=== PATIENT | male | born 1995 | race Caucasian/White ===

== ENCOUNTER 2018-03-11 11:58 | Emergency (ER) | payer SELFPAY ==
[2018-03-11 12:01] VITALS: BP 124/84
[2018-03-11] MEDS ORDERED: ROBAXIN500 M1 PO (14:12)
[2018-03-11] MEDS ORDERED: NAPROSYN500 MG PO (14:12)
== END 2018-03-11 12:13 | disposition home or self-care (01) ==
LOC: ED 11:58
DX: S46.911A Strain of unspecified muscle, fascia and tendon at shoulder and upper arm level, right arm, initial encounter (principal); Z88.2 Allergy status to sulfonamides; X50.0XXA Overexertion from strenuous movement or load, initial encounter; Y93.89 Activity, other specified; Y92.89 Other specified places as the place of occurrence of the external cause; Y99.8 Other external cause status

== ENCOUNTER 2019-01-12 02:48 | Emergency (ER) | payer SELFPAY ==
[~2019-01-12] VITALS: Wt 65.8 kg
[~2019-01-12 02:48] MED LIST: NAPROSYN500 MG PO; ROBAXIN500 M1 PO
[2019-01-12 02:49] VITALS: BP 153/77
== END 2019-01-12 04:14 | disposition home or self-care (01) ==
LOC: ED 02:48
DX: S67.22XA Crushing injury of left hand, initial encounter (principal); Z88.2 Allergy status to sulfonamides; W23.0XXA Caught, crushed, jammed, or pinched between moving objects, initial encounter; Y93.89 Activity, other specified; Y92.69 Other specified industrial and construction area as the place of occurrence of the external cause; Y99.8 Other external cause status

== ENCOUNTER → 2020-02-11 | Outpatient (CLI) | payer SELFPAY | END | disposition home or self-care (01) | LOC: COVID19 11:32 | PROVIDERS: ATTEND Student in an Organized Health Care Education/Training Program | DX: Z20.828 Contact with and (suspected) exposure to other viral communicable diseases (principal) ==

== ENCOUNTER 2020-02-26 15:04 | Emergency (ER) | payer SELFPAY ==
[~2020-02-26] VITALS: Wt 68.0 kg
[2020-02-26 15:13] VITALS: BP 139/91
== END 2020-02-26 18:06 | disposition home or self-care (01) ==
LOC: ED 15:04
DX: S06.0X0A Concussion without loss of consciousness, initial encounter (principal); Z88.2 Allergy status to sulfonamides; W18.39XA Other fall on same level, initial encounter; Y93.89 Activity, other specified; Y92.89 Other specified places as the place of occurrence of the external cause; Y99.8 Other external cause status

== ENCOUNTER 2020-08-08 18:20 | Emergency (ER) | payer SELFPAY ==
[~2020-08-08] VITALS: Ht 170.1 cm; Wt 68.0 kg
[2020-08-08 18:25] VITALS: BP 139/95
[2020-08-08] MEDS ORDERED: Motrin,Rufen800 MG PO (19:55)
[2020-08-08] MEDS ORDERED: MEDROL DOSEPAK4 MG PO (19:55)
== END 2020-08-08 20:23 | disposition home or self-care (01) ==
LOC: ED 18:20
DX: S39.012A Strain of muscle, fascia and tendon of lower back, initial encounter (principal); M54.6 Pain in thoracic spine; R07.81 Pleurodynia; Z88.2 Allergy status to sulfonamides; W22.8XXA Striking against or struck by other objects, initial encounter; Y93.89 Activity, other specified; Y92.89 Other specified places as the place of occurrence of the external cause; Y99.8 Other external cause status

== ENCOUNTER → 2020-12-01 | Outpatient (CLI) | payer OTHER ==
[~2020-12-01] MED LIST changes: +MEDROL DOSEPAK4 MG PO; +Motrin,Rufen800 MG PO
== END | disposition home or self-care (01) ==
LOC: COVID19 16:06
PROVIDERS: ATTEND Internal Medicine
DX: Z11.52 Encounter for screening for COVID-19 (principal)

== ENCOUNTER 2020-12-24 06:14 | Emergency (ER) | payer SELFPAY ==
[~2020-12-24] VITALS: Ht 167.6 cm; Wt 70.3 kg
[2020-12-24 06:23] VITALS: BP 128/75
[2020-12-24] MEDS ORDERED: NAPROXEN250 MG PO (08:04)
[2020-12-24] MEDS ORDERED: TYLENOL325 M1 PO (08:04)
== END 2020-12-24 08:07 | disposition home or self-care (01) ==
LOC: ED 06:14
DX: S89.91XA Unspecified injury of right lower leg, initial encounter (principal); S99.911A Unspecified injury of right ankle, initial encounter; S99.921A Unspecified injury of right foot, initial encounter; F17.200 Nicotine dependence, unspecified, uncomplicated; Z88.2 Allergy status to sulfonamides; W18.49XA Other slipping, tripping and stumbling without falling, initial encounter; Y93.89 Activity, other specified; Y92.89 Other specified places as the place of occurrence of the external cause; Y99.8 Other external cause status

== ENCOUNTER 2021-01-12 20:44 | Emergency (ER) | payer SELFPAY ==
[~2021-01-12] VITALS: Wt 72.6 kg
[~2021-01-12 20:44] MED LIST changes: +NAPROXEN250 MG PO; +TYLENOL325 M1 PO
[2021-01-12] MEDS ORDERED: NYSTATIN CREAM15 GM T (22:27)
[2021-01-12 22:48] VITALS: BP 128/62
== END 2021-01-12 22:46 | disposition home or self-care (01) ==
LOC: ED 20:44
DX: N34.2 Other urethritis (principal); Z88.2 Allergy status to sulfonamides

== ENCOUNTER 2021-08-03 15:56 | Emergency (ER) | payer SELFPAY ==
[~2021-08-03] VITALS: Ht 170.1 cm; Wt 68.0 kg
[~2021-08-03 15:56] MED LIST changes: +NYSTATIN CREAM15 GM T
[2021-08-03 16:01] VITALS: BP 144/57
[2021-08-03 16:54] LABS: BASO # 0.1 10*3/uL (0.0-0.1); BASO % 0.7 % (0.0-1.0); EOS # 0.8 10*3/uL (0.0-0.4); EOS % 11.1 % (1.0-4.0); HEMATOCRIT 48.9 % (42.0-52.0); LYMPH # 1.9 10*3/uL (1.3-4.4); LYMPH % 26.6 % (27.0-41.0); MEAN CORPUSCULAR HGB 29.9 pg (27.0-31.0); MEAN CORPUSCULAR HGB CONC 34.4 g/dl (33.0-37.0); MEAN PLATELET VOLUME 11.5 fl (9.6-12.3); MONO # 0.6 10*3/uL (0.1-1.0); MONO % 8.2 % (3.0-9.0); NEUT # 3.9 10*3/uL (2.3-7.9); NEUT % 53.1 % (47.0-73.0); PLATELET COUNT AUTOMATED 260 10*3/uL (130-400); RED BLOOD COUNT 5.62 10*6/uL (4.50-5.90); RED CELL DISTRI WIDTH 11.9 % (0-14.5); WHITE BLOOD COUNT 7.3 10*3/uL (4.8-10.8)
[2021-08-03 17:08] LABS: ALKALINE PHOSPHATASE 81 U/L (45-117); BUN 9 mg/dl (7-24); CHLORIDE 104 mmol/L (98-107); CREATININE 1.22 mg/dL (0.70-1.30); LIPASE 180 U/L (73-393); POTASSIUM 3.9 mmol/L (3.5-5.1); SGOT/AST 17 IU/L (3-35); SGPT/ALT 25 U/L (12-78); SODIUM 137 mmol/L (136-145); TOTAL PROTEIN 7.8 gm/dL (6.4-8.2)
== END 2021-08-03 19:15 | disposition home or self-care (01) ==
LOC: ED 15:56
PROVIDERS: Registered Nurse
DX: B34.9 Viral infection, unspecified (principal); Z88.2 Allergy status to sulfonamides

== ENCOUNTER 2022-01-02 05:08 | Emergency (ER) | payer SELFPAY ==
[~2022-01-02] VITALS: Ht 170.1 cm; Wt 68.0 kg
[2022-01-02 05:51] LABS: BILIRUBIN Negative (Negative); BLOOD Negative (Negative); CLARITY Clear (Clear); COLOR Yellow (Yellow); GLUCOSE Negative (Negative); KETONE Negative (Negative); LEUKO ESTERASE Negative (Negative); NITRITE Negative (Negative); PH 5.5 (4.5-8.0); UROBILINOGEN 0.2 E.U./dl (0.0-1.0)
[2022-01-02 06:13] LABS: BACTERIA TRACE
[2022-01-02 06:30] LABS: BASO % 0.6 % (0.0-1.0); EOS # 0.4 10*3/uL (0.0-0.4); EOS % 5.7 % (1.0-4.0); HEMATOCRIT 45.3 % (42.0-52.0); LYMPH # 2.1 10*3/uL (1.3-4.4); LYMPH % 28.5 % (27.0-41.0); MEAN CELL VOLUME 86.5 fl (80.0-94.0); MEAN CORPUSCULAR HGB 30.2 pg (27.0-31.0); MEAN CORPUSCULAR HGB CONC 34.9 g/dl (33.0-37.0); MEAN PLATELET VOLUME 11.3 fl (9.6-12.3); MONO # 0.7 10*3/uL (0.1-1.0); MONO % 9.8 % (3.0-9.0); NEUT % 55.3 % (47.0-73.0); PLATELET COUNT AUTOMATED 231 10*3/uL (130-400); RED BLOOD COUNT 5.24 10*6/uL (4.50-5.90); WHITE BLOOD COUNT 7.2 10*3/uL (4.8-10.8)
[2022-01-02 06:49] LABS: ALKALINE PHOSPHATASE 70 U/L (45-117); BUN 12 mg/dl (7-24); CHLORIDE 106 mmol/L (98-107); CREATININE 1.32 mg/dL (0.70-1.30); POTASSIUM 3.3 mmol/L (3.5-5.1); SGPT/ALT 31 U/L (12-78); SODIUM 142 mmol/L (136-145)
== END 2022-01-02 06:59 | disposition home or self-care (01) ==
LOC: ED 05:08
PROVIDERS: Emergency Medicine
DX: R10.30 Lower abdominal pain, unspecified (principal); Z88.2 Allergy status to sulfonamides

== ENCOUNTER 2022-01-07 23:46 | Emergency (ER) | payer SELFPAY ==
[~2022-01-07] VITALS: Ht 171.4 cm; Wt 68.0 kg
[2022-01-08 00:01] VITALS: BP 142/91
[2022-01-08 00:20] LABS: BILIRUBIN Negative (Negative); BLOOD Negative (Negative); CLARITY Clear (Clear); COLOR Yellow (Yellow); GLUCOSE Negative (Negative); KETONE Negative (Negative); LEUKO ESTERASE Negative (Negative); NITRITE Negative (Negative)
[2022-01-08 00:32] LABS: WBC 0-2 wbc/hpf (0-5)
[2022-01-08 02:30] LABS: BASO # 0.1 10*3/uL (0.0-0.1); BASO % 0.7 % (0.0-1.0); EOS # 0.6 10*3/uL (0.0-0.4); EOS % 6.6 % (1.0-4.0); HEMATOCRIT 46.9 % (42.0-52.0); LYMPH # 2.3 10*3/uL (1.3-4.4); LYMPH % 24.1 % (27.0-41.0); MEAN CELL VOLUME 85.9 fl (80.0-94.0); MEAN PLATELET VOLUME 11.8 fl (9.6-12.3); MONO # 0.6 10*3/uL (0.1-1.0); MONO % 6.5 % (3.0-9.0); NEUT # 5.8 10*3/uL (2.3-7.9); NEUT % 61.9 % (47.0-73.0); PLATELET COUNT AUTOMATED 257 10*3/uL (130-400); RED BLOOD COUNT 5.46 10*6/uL (4.50-5.90); WHITE BLOOD COUNT 9.4 10*3/uL (4.8-10.8)
[2022-01-08 02:47] LABS: ALKALINE PHOSPHATASE 71 U/L (45-117); BUN 9 mg/dl (7-24); CHLORIDE 108 mmol/L (98-107); CREATININE 1.16 mg/dL (0.70-1.30); POTASSIUM 3.6 mmol/L (3.5-5.1); SGPT/ALT 25 U/L (12-78); SODIUM 139 mmol/L (136-145); TOTAL PROTEIN 7.3 gm/dL (6.4-8.2)
== END 2022-01-08 05:40 | disposition home or self-care (01) ==
LOC: ED 23:46
PROVIDERS: Emergency Medicine
DX: R10.31 Right lower quadrant pain (principal); Z88.2 Allergy status to sulfonamides

== ENCOUNTER 2023-01-28 06:56 | Emergency (ER) | payer SELFPAY ==
[~2023-01-28] VITALS: Ht 170.1 cm; Wt 68.0 kg
[2023-01-28 07:09] VITALS: BP 113/82
[2023-01-28] MEDS ORDERED: PREDNISONE50 MG PO (07:31)
[2023-01-28] MEDS ORDERED: ZITHROMAX250 MG PO (07:31)
[2023-01-28] MEDS ORDERED: PROVENTIL HFA6.7 GM INH (07:31)
== END 2023-01-28 08:05 | disposition home or self-care (01) ==
LOC: ED 06:56
DX: R05.9 Cough, unspecified (principal); R06.2 Wheezing; R11.10 Vomiting, unspecified; R51.9 Headache, unspecified; Z88.2 Allergy status to sulfonamides